=== PATIENT | male | born 1965 | race African-American/Black ===

== ENCOUNTER 2020-04-25 13:54 | Emergency (ER) | payer BC ==
[~2020-04-25] VITALS: Ht 177.8 cm; Wt 88.5 kg
[2020-04-25] MEDS ORDERED: BENADRYL25 MG PO (14:56)
[2020-04-25] MEDS ORDERED: NAPROSYN500 MG PO (14:56)
[2020-04-25 15:00] VITALS: BP 157/89
== END 2020-04-25 15:07 | disposition home or self-care (01) ==
LOC: ER 13:54
DX: S50.861A Insect bite (nonvenomous) of right forearm, initial encounter (principal); W57.XXXA Bitten or stung by nonvenomous insect and other nonvenomous arthropods, initial encounter; Y93.89 Activity, other specified; Y92.89 Other specified places as the place of occurrence of the external cause; Y99.8 Other external cause status

== ENCOUNTER 2020-06-15 22:03 | Emergency (ER) | payer BC ==
[~2020-06-15] VITALS: Ht 177.8 cm; Wt 88.5 kg
[~2020-06-15 22:03] MED LIST: BENADRYL25 MG PO; NAPROSYN500 MG PO
[2020-06-15] MEDS ORDERED: NOHOMEMEDICATIONS (22:10)
[2020-06-15 23:03] LABS: ABSOLUTE NEUTROPHILS 4.7 thou/uL (1.4-8.2); BASOPHILS 0.4 % (0.0-2.0); HEMOGLOBIN 14.2 gm/dL (14.0-18.0)
[2020-06-15 23:04] LABS: EOSINOPHILS 1.5 % (0.0-3.0); HEMATOCRIT 41.7 % (42.0-52.0); LYMPHOCYTES 33.3 % (24.0-44.0); MCH 29.9 pg (26.0-34.0); MCV 87.9 fL (80.0-100.0); MONOCYTES 8.2 % (1.0-8.0); PLATELET COUNT 249 thou/uL (150-400); POLYS 56.6 % (36.0-66.0); RBC 4.75 mil/uL (4.50-6.00); RDW 13.6 % (10.5-14.5); WBC 8.3 thou/uL (4.0-11.0)
[2020-06-15 23:11] LABS: ANION GAP 13 mmol/L (7-16); BUN 14 mg/dL (7-18); CALCIUM 8.2 mg/dL (8.5-10.1); CHLORIDE 100 mmol/L (98-107); CO2 24 mmol/L (21-32); CREATININE 1.3 mg/dL (0.7-1.3); GLUCOSE 156 mg/dL (74-106); POTASSIUM 3.3 mmol/L (3.5-5.1); SODIUM 137 mmol/L (136-145)
[2020-06-15 23:19] LABS: DIRECT BILIRUBIN 0.2 mg/dL (<0.1-0.2); SGOT 29 U/L (15-37); SGPT 27 U/L (30-65); TOTAL BILIRUBIN 0.9 mg/dL (0.2-1.0); TOTAL PROTEIN 7.5 g/dL (6.4-8.2); TROPONIN-I <0.06 ng/mL (<0.06)
[2020-06-16] MEDS ORDERED: MECLIZINE HCL25 MG PO (01:11)
[2020-06-16 01:33] VITALS: BP 150/77
--- NOTE | 2020-06-16 07:52 | EKG ---
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
== END 2020-06-16 01:35 | disposition home or self-care (01) ==
LOC: ER 22:03
PROVIDERS: Emergency Medicine
DX: R42 Dizziness and giddiness (principal); Z88.6 Allergy status to analgesic agent

== ENCOUNTER 2020-10-15 12:58 | Emergency (ER) | payer BC ==
[~2020-10-15] VITALS: Ht 177.8 cm; Wt 87.5 kg
[~2020-10-15 12:58] MED LIST changes: +MECLIZINE HCL25 MG PO; +NOHOMEMEDICATIONS
--- NOTE | 2020-10-15 16:00 | EKG ---
[facility] [address] [place] [address] ELECTROCARDIOGRAM REPORT Name: TESSIE SKINNER Room #: [facility] [place]#: [id number] Admission: 10/15/20 Attend Phys: Discharge: Date of : 63 Report #: [id number] <ELECTRONICALLY SIGNED> By: Tino Murray MD, FACC 10/15/201599 32 1533 Tino Murray MD, FACC /EPI
[2020-10-15 16:09] LABS: ABSOLUTE NEUTROPHILS 3.8 thou/uL (1.4-8.2); BASOPHILS 0.3 % (0.0-2.0); HEMOGLOBIN 13.8 gm/dL (14.0-18.0); MCH 28.5 pg (26.0-34.0); MONOCYTES 9.5 % (1.0-8.0); PLATELET COUNT 265 thou/uL (150-400); POLYS 64.2 % (36.0-66.0); RBC 4.83 mil/uL (4.50-6.00); RDW 13.2 % (10.5-14.5)
[2020-10-15 16:14] LABS: ANION GAP 9 mmol/L (7-16); BUN 11 mg/dL (7-18); CHLORIDE 104 mmol/L (98-107); CO2 30 mmol/L (21-32); CREATININE 1.2 mg/dL (0.7-1.3); GLUCOSE 89 mg/dL (74-106); POTASSIUM 3.8 mmol/L (3.5-5.1); SODIUM 143 mmol/L (136-145)
[2020-10-15 16:22] LABS: TROPONIN-I <0.06 ng/mL (<0.06)
[2020-10-15 17:00] VITALS: BP 143/94
== END 2020-10-15 17:01 | disposition home or self-care (01) ==
LOC: ER 12:58
PROVIDERS: Emergency Medicine
DX: R07.89 Other chest pain (principal); R10.12 Left upper quadrant pain; R42 Dizziness and giddiness; Z98.890 Other specified postprocedural states; Z79.899 Other long term (current) drug therapy; Z88.6 Allergy status to analgesic agent

== ENCOUNTER 2021-06-01 12:47 | Emergency (ER) | payer BC ==
[~2021-06-01] VITALS: Ht 177.8 cm; Wt 90.7 kg
[2021-06-01 12:59] LABS: ABSOLUTE NEUTROPHILS 3.8 thou/uL (1.4-8.2); BASOPHILS 0.7 % (0.0-2.0); HEMATOCRIT 41.4 % (42.0-52.0); HEMOGLOBIN 13.6 gm/dL (14.0-18.0); LYMPHOCYTES 32.3 % (24.0-44.0); MCHC 32.9 g/dL (28.0-37.0); MCV 88.1 fL (80.0-100.0); MONOCYTES 9.5 % (1.0-8.0); PLATELET COUNT 288 thou/uL (150-400); POLYS 55.5 % (36.0-66.0); RDW 13.8 % (10.5-14.5); WBC 6.9 thou/uL (4.0-11.0)
[2021-06-01 13:00] LABS: URINE BILIRUBIN NEGATIVE (Negative); URINE BLOOD NEGATIVE (Negative); URINE CLARITY CLEAR; URINE COLOR YELLOW; URINE GLUCOSE-RANDOM* NEGATIVE (Negative); URINE KETONES NEGATIVE (Negative); URINE LEUKOCYTES-REFLEX TRACE (Negative); URINE NITRITE-REFLEX NEGATIVE (Negative); URINE PROTEIN (DIPSTICK) NEGATIVE (Negative)
[2021-06-01 13:07] LABS: ANION GAP 6 mmol/L (7-16); BUN 18 mg/dL (7-18); CHLORIDE 105 mmol/L (98-107); CO2 30 mmol/L (21-32); CREATININE 1.4 mg/dL (0.7-1.3); GLUCOSE 76 mg/dL (74-106); POTASSIUM 3.9 mmol/L (3.5-5.1); SODIUM 141 mmol/L (136-145)
[2021-06-01 13:19] LABS: ALBUMIN 3.9 g/dL (3.4-5.0); SGOT 27 U/L (15-37); SGPT 25 U/L (16-63); TOTAL BILIRUBIN 1.2 mg/dL (0.2-1.0); TOTAL PROTEIN 7.5 g/dL (6.4-8.2); TROPONIN-I <0.06 ng/mL (<0.06)
[2021-06-01 16:30] VITALS: BP 149/89
== END 2021-06-01 16:30 | disposition home or self-care (01) ==
LOC: ER 12:47
PROVIDERS: Emergency Medicine
DX: R55 Syncope and collapse (principal); R53.1 Weakness; Z79.899 Other long term (current) drug therapy; Z88.6 Allergy status to analgesic agent